=== PATIENT | male | born 1995 | race African-American/Black ===

== ENCOUNTER 2021-08-09 20:20 | Outpatient (CLI) | payer BC ==
[2021-08-09 20:17] VITALS: BP 114/77
[2021-08-09 21:46] LABS: GLUCOMETER DEV NAME(LOC) POC.BV
== END 2021-08-10 00:25 | disposition home or self-care (01) ==
LOC: CSU 20:20
PROVIDERS: ATTEND Student in an Organized Health Care Education/Training Program
DX: F32.A Depression, unspecified (principal); F43.21 Adjustment disorder with depressed mood
CPT/HCPCS: 90792